=== PATIENT | male | born 1990 | race Caucasian/White ===

== ENCOUNTER 2023-07-27 21:51 | Emergency (ER) | payer OTHER, SELFPAY ==
[2023-07-27 21:55] VITALS: BP 156/96; PULSE 92; RESP 16; TEMP 36.4; O2SAT 100
--- NOTE | 2023-07-28 01:15 | ED.GENADULT ---
HPI - General Adult General Chief complaint: Ear Stated complaint: R ear pain Time Seen by Provider: 07/27/23 23:50 History of Present Illness HPI narrative: This is a 33-year-old male presenting to ED with 4 days of ear pain and sinus pressure. Patient had a fever yesterday. He has been taking sign Motrin Tylenol without relief. He has now developed ear pain with drainage on the right side. He also has tinnitus difficulty hearing. Related Data Allergies Allergy/AdvReac Type Severity Reaction Status Date / Time No Known Allergies Allergy Verified 07/28/23 01:18 Exam Narrative: APPEARANCE: No apparent distress. Head: patient winces when the endoscope was inserted into the auditory canal. Visible tympanic membrane intact and bulging. Erythema of the auditory canal. Left ear exam is normal. EYES: EOMI, NOSE: Atraumatic NECK: Trachea midline RESPIRATORY: No increased rate of breathing, CTAB CARDIOVASCULAR: RRR, ABDOMINAL: Non-distended MUSCULOSKELETAl: No obvious deformities NEURO: Alert. Moving 4/4 extremities SKIN:: Warm, dry. Normal color PSYCHIATRIC: Normal affect Course Vital Signs Vital signs: Vital Signs Temperature 97.5 F L 07/27/23 21:55 Pulse Rate 92 07/27/23 21:55 Respiratory Rate 16 07/27/23 21:55 Blood Pressure 156/96 H 07/27/23 21:55 Pulse Oximetry 100 07/27/23 21:55 Oxygen Delivery Room Air 07/27/23 21:55 Temperature 97.5 F L 07/27/23 21:55 Pulse Rate 92 07/27/23 21:55 Respiratory Rate 16 07/27/23 21:55 Blood Pressure 156/96 H 07/27/23 21:55 Pulse Oximetry 100 07/27/23 21:55 Oxygen Delivery Room Air 07/27/23 21:55 Medical Decision Making [facility] Narrative Medical decision making narrative: -Course: 33-year-old male presenting with ear pain and fevers. Also has pain in his auditory canal. Will be treated for otitis media and otitis externa. Discharged with the ENT follow-up. -DDX includes but is not limited to: Otitis media, otitis externa, sinusitis -Interventions: [place], Augmentin -Shared decision making / Disposition: discharged -RX Motrin, Tylenol, Augmentin, Ciprodex otic, Vital Signs Vital Signs: Vital Signs Temperature 97.5 F L 07/27/23 21:55 Pulse Rate 92 07/27/23 21:55 Respiratory Rate 16 07/27/23 21:55 Blood Pressure 156/96 H 07/27/23 21:55 Pulse Oximetry 100 07/27/23 21:55 Oxygen Delivery Room Air 07/27/23 21:55 Temperature 97.5 F L 07/27/23 21:55 Pulse Rate 92 07/27/23 21:55 Respiratory Rate 16 07/27/23 21:55 Blood Pressure 156/96 H 07/27/23 21:55 Pulse Oximetry 100 07/27/23 21:55 Oxygen Delivery Room Air 07/27/23 21:55 Discharge Plan Discharge Clinical Impression: Otitis externa, Otitis media Patient Disposition: Home, Self-Care Condition: Stable Instructions: Antibiotic Form, Ear Infection (AC) Additional Instructions: Please take the antibiotics as instructed. He is Motrin Tylenol for pain. Follow-up with ENT or your primary care physician. Prescriptions: New acetaminophen 500 mg tablet 1,000 mg PO TID PRN (Reason: misti) 7 Days Qty: 42 0RF ciprofloxacin-dexamethasone 0.3-0.1 % drops,suspension 4 drp RIGHT EAR Q12H 7 Days Qty: 7.5 0RF ibuprofen 800 mg tablet 800 mg PO TID PRN (Reason: pain) 7 Days Qty: 21 0RF amoxicillin-pot clavulanate 875-125 mg tablet 1 tablet PO Q12H Qty: 20 0RF Follow-up/Referrals: Thad Uribe MD [Physician] - 3 Days (Ear infection) Rivas,UN Paulnio [Primary Care Provider] -
[2023-07-28] MEDS: AMOXICILLIN/CLAVULANATE K 875-125 MG TAB 1 TABLET PO (01:40)
[2023-07-28] MEDS: HYDROcodone/acetaminophen (*CRX) 5-325 MG TABLET 1 TAB PO (01:40)
[2023-07-28 01:41] VITALS: BP 142/81; PULSE 90; RESP 17; O2SAT 100
== END 2023-07-28 01:43 | disposition home or self-care (01) ==
PROVIDERS: Emergency Provider Emergency Medicine; PCP Nurse Practitioner
DX: H66.91 Otitis media, unspecified, right ear (principal); H60.91 Unspecified otitis externa, right ear
CPT/HCPCS: 99283; A9270